=== PATIENT | female | born 1945 | race Caucasian/White ===

== ENCOUNTER 2016-12-01 06:38 | Outpatient (RCR) | payer MEDICARE ==
[~2016-12-01] VITALS: Ht 162.6 cm; Wt 62.2 kg
[2016-12-01] MEDS ORDERED: Methohexital Sodium Syr 100mg/10ml IVP ONE (06:39)
[2016-12-01] MEDS ORDERED: Succinylcholine 20mg/ml 10ml vial ONE (06:39)
[2016-12-03] MEDS ORDERED: NS 550ML IV ONE (07:00)
[2016-12-03] MEDS ORDERED: Succinylcholine 20mg/ml 10ml vial ONE (07:00)
[2016-12-03] MEDS ORDERED: Methohexital Sodium Syr 100mg/10ml IVP ONE (07:00)
[2016-12-05] MEDS ORDERED: Methohexital Sodium Syr 100mg/10ml IVP ONE (07:00)
[2016-12-05] MEDS ORDERED: NS 550ML IV ONE (07:00)
[2016-12-05] MEDS ORDERED: Succinylcholine 20mg/ml 10ml vial ONE (07:00)
[2016-12-08] MEDS ORDERED: NS 550ML IV ONE (08:00)
[2016-12-08] MEDS ORDERED: Methohexital Sodium Syr 100mg/10ml IVP ONE (08:00)
[2016-12-08] MEDS ORDERED: Succinylcholine 20mg/ml 10ml vial ONE (08:00)
[2016-12-10] MEDS ORDERED: Methohexital Sodium Syr 100mg/10ml IVP ONE (07:00)
[2016-12-10] MEDS ORDERED: Succinylcholine 20mg/ml 10ml vial ONE (07:00)
[2016-12-10] MEDS ORDERED: NS 550ML IV ONE (07:00)
[2016-12-10] MEDS ORDERED: Atropine Sulfate 0.4mg/ml inj IVP PRN (09:42)
[2016-12-12] MEDS ORDERED: Methohexital Sodium Syr 100mg/10ml IVP ONE (12:31)
[2016-12-12] MEDS ORDERED: NS 550ML IV ONE (12:31)
[2016-12-12] MEDS ORDERED: Succinylcholine 20mg/ml 10ml vial ONE (12:31)
[2016-12-15] MEDS ORDERED: Methohexital Sodium Syr 100mg/10ml IVP ONE (07:00)
[2016-12-15] MEDS ORDERED: Succinylcholine 20mg/ml 10ml vial ONE (07:00)
[2016-12-15] MEDS ORDERED: NS 550ML IV ONE (07:00)
[2016-12-17] MEDS ORDERED: Succinylcholine 20mg/ml 10ml vial ONE (07:00)
[2016-12-17] MEDS ORDERED: NS 550ML IV ONE (07:00)
[2016-12-17] MEDS ORDERED: Methohexital Sodium Syr 100mg/10ml IVP ONE (07:00)
[2016-12-26] MEDS ORDERED: Methohexital Sodium Syr 100mg/10ml IVP ONE (07:00)
[2016-12-26] MEDS ORDERED: NS 550ML IV ONE (07:00)
[2016-12-26] MEDS ORDERED: Succinylcholine 20mg/ml 10ml vial ONE (07:00)
[2016-12-31] MEDS ORDERED: Methohexital Sodium Syr 100mg/10ml IVP ONE (07:00)
[2016-12-31] MEDS ORDERED: NS 550ML IV ONE (07:00)
[2016-12-31] MEDS ORDERED: Succinylcholine 20mg/ml 10ml vial ONE (07:00)
== END 2016-12-31 | disposition home or self-care (01) ==
LOC: ECT 06:38
DX: F33.2 Major depressive disorder, recurrent severe without psychotic features (principal); F50.9 Eating disorder, unspecified; F31.63 Bipolar disorder, current episode mixed, severe, without psychotic features
CPT/HCPCS: 90870; J0330; J7040

== ENCOUNTER 2017-01-05 08:03 | Outpatient (RCR) | payer MEDICARE ==
[~2017-01-05] VITALS: Ht 162.6 cm; Wt 62.1 kg
[2017-01-05] MEDS ORDERED: Succinylcholine 20mg/ml 10ml vial ONE (08:04)
[2017-01-05] MEDS ORDERED: NS 550ML IV ONE (08:04)
[2017-01-05] MEDS ORDERED: Methohexital Sodium Syr 100mg/10ml IVP ONE (08:04)
[2017-01-05] MEDS ORDERED: Atropine Sulfate 0.4mg/ml inj IVP PRN (09:46)
[2017-01-14] MEDS ORDERED: Methohexital Sodium Syr 100mg/10ml IVP ONE (07:00)
[2017-01-14] MEDS ORDERED: Succinylcholine 20mg/ml 10ml vial ONE (07:00)
[2017-01-14] MEDS ORDERED: NS 550ML IV ONE (07:00)
[2017-01-28] MEDS ORDERED: Methohexital Sodium Syr 100mg/10ml IVP ONE (12:30)
[2017-01-28] MEDS ORDERED: Succinylcholine 20mg/ml 10ml vial ONE (12:30)
[2017-01-28] MEDS ORDERED: NS 550ML IV ONE (12:30)
== END 2017-01-30 | disposition home or self-care (01) ==
LOC: ECT 08:03
DX: F31.63 Bipolar disorder, current episode mixed, severe, without psychotic features (principal)
CPT/HCPCS: 90870; J0330; J7040

== ENCOUNTER 2017-02-16 07:26 | Outpatient (RCR) | payer MEDICARE ==
[~2017-02-16] VITALS: Ht 162.6 cm; Wt 62.1 kg
[2017-02-16] MEDS ORDERED: Succinylcholine 20mg/ml 10ml vial ONE (07:27)
[2017-02-16] MEDS ORDERED: Methohexital Sodium Syr 100mg/10ml IVP ONE (07:27)
[2017-02-16] MEDS ORDERED: NS 550ML IV ONE (07:27)
== END 2017-03-02 | disposition home or self-care (01) ==
LOC: ECT 07:26
DX: F31.63 Bipolar disorder, current episode mixed, severe, without psychotic features (principal)
CPT/HCPCS: 90870; J0330; J7040